=== PATIENT | female | born 1980 | race Caucasian/White ===

== ENCOUNTER → 2021-09-21 | Outpatient (CLI) | payer BC ==
--- NOTE | 2021-09-21 10:12 | RAD ---
EXAM: 1. ULTRASOUND-GUIDED CORE BIOPSY RIGHT BREAST WITH CLIP PLACEMENT. 2. POSTCLIP DIAGNOSTIC RIGHT MAMMOGRAPHY. HISTORY: Right breast lesion. Ultrasound-guided biopsy is requested. FINDINGS: The procedure along with its risks and benefits were explained to the patient. She agreed to proceed. A timeout procedure was performed. Sonographic evaluation of the right breast redemonstrates the lesion of concern. It is seen as ill-de fined hypoechoic region versus a cluster of cyst at the 5:00 position 7 cm from the nipple The overly ing skin was sterilely prepped and infiltrated with 1% lidocaine for local anesthesia. Under ultrasou nd guidance, 3 core needle specimens of the target lesion were obtained using a 14-gauge biopsy devic e. These were submitted in formalin. A postbiopsy clip was placed under ultrasound guidance. Pressure was held to hemostasis. There were no immediate complications. Full-field digital mammographic views of the right breast were obtained in CC and MLO projections and interpreted on a dedicated workstation. They demonstrate the clip in correspondence with the target lesion. IMPRESSION: 1. Successful ultrasound-guided right breast biopsy with clip placement. 2. The postbiopsy clip corresponds with the mammographic target lesion. Electronically signed by: Mike Garcia MD (09/21/2021 10:10 AM) [id number]
--- NOTE | 2021-09-23 12:09 | PATHOLOGY ---
[facility] Accession Number: [id number] . 01 Material submitted: . breast - RIGHT BREAST MASS 5 O'CLOCK 7CM FN 1.2CM. Modifiers: right, 5:00, 7CM FN . 01 Clinical history: . ABNORMAL MAMMO RT BREAST BIOPSY OBATINED: 0947 AM FORMALIN: 0948 AM 1.2CM . 02 Diagnosis: Breast "right mass 5:00, 7 cm from nipple", needle biopsy: - Fibrocystic changes including dense fibrosis, apocrine metaplasia, adenosis, and fibroadenomatoid change. - Negative for atypia and malignancy. (KAIK:nedra; 09/22/2021) [facility] 09/23/2021 1142 Local . 02 Comment: The case is seen in co-review, with consensus, by Dr. Jia Herrera on 09/23/2021. . 02 Electronically signed: . Samir Hansen MD, Pathologist NPI- [id number] . 01 Gross description: . Received in formalin labeled "Marhta Ribera, right breast 5:00 7 cm FN" are 3 powers-yellow cylindrical soft tissue cores measuring in aggregate 1.7 x 0.6 x 0.2 cm. The specimen is submitted entirely in cassettes A1-A3. The specimen is removed from the patient at 0947 and placed in formalin at 0948 on 09/21/2021. The specimen is removed from formalin at 1950 on 09/21/2021. ([facility]; 09/21/2021) [facility] 09/21/2021 1632 Local . 02 Pathologist provided ICD-10: N60.11, N60.31, N60.81, N60.21 . 02 CPT . 380560 Specimen Comment: A courtesy copy of this report has been sent to [phone], [phone] Specimen Comment: [id number] Specimen Comment: Report sent to / DR CHAUHAN Performed at: 01 [facility] [address], [place] [id number] MD Cleve Mohan MD Phone: [phone] Performed at: 02 [facility] [address] [place], [place] [id number] MD Maciej Reddy MD Phone: [phone]
== END | disposition home or self-care (01) ==
LOC: US 08:55
PROVIDERS: ATTEND Family Medicine
DX: R92.8 Other abnormal and inconclusive findings on diagnostic imaging of breast (principal); N63.14 Unspecified lump in the right breast, lower inner quadrant
CPT/HCPCS: 19083; 77065; A4648; C1819